=== PATIENT | male | born 1980 | race Caucasian/White ===

== ENCOUNTER 2018-05-10 04:40 | Outpatient (CLI) | payer BC ==
[2018-05-10 10:45] LABS: Hemoglobin 15.2 g/dL (14.0-18.0); Mean Corpuscular Hemoglobin 31.7 pg (27.0-31.0); Mean Corpuscular Volume 90.6 fL (78.0-98.0); Mean Platelet Volume 6.5 fL (7.4-10.4); Platelet Count 302 thou/uL (130-400); RBC Distribution Width 10.8 % (11.5-14.5); Red Blood Cell (RBC) Count 4.81 mill/uL (4.70-6.10); White Blood Cell (WBC) Count 6.4 thou/uL (4.8-10.8)
[2018-05-10 11:06] LABS: Anion Gap 14 mmol/L (10-20); BUN (Urea Nitrogen) 12 mg/dL (8.9-20.6); Calc. Creatinine Clearance 0 mL/min (70-130); Calcium 9.7 mg/dL (7.8-10.44); Carbon Dioxide 26 mmol/L (22-29); Chloride 105 mmol/L (98-107); Estimated GFR-MDRD Greater than 90; Glucose 98 mg/dL (70-105); Potassium 4.7 mmol/L (3.5-5.1); Sodium 140 mmol/L (136-145)
== END 2018-05-10 04:41 | disposition home or self-care (01) ==
LOC: LABBT 04:40
PROVIDERS: ATTEND Neurological Surgery
DX: Z01.818 Encounter for other preprocedural examination (principal); M54.16 Radiculopathy, lumbar region
CPT/HCPCS: 80048; 85027; 93005; 93010

== ENCOUNTER 2018-05-12 08:07 | Observation (INO) | payer BC ==
[2018-05-12] MEDS ORDERED: Ketorolac Tromethamine 30 MG/ML VIAL ONE (10:42)
[2018-05-12] MEDS ORDERED: Lidocaine 1% PF 5 ML VIAL ONE (10:42)
[2018-05-12] MEDS ORDERED: Glycopyrrolate 0.2 MG/ML 5 ML SYRINGE ONE (10:42)
[2018-05-12] MEDS ORDERED: PROPOFOL 200 MG/20 ML VIAL ONE (10:42)
[2018-05-12] MEDS ORDERED: Metoclopramide HCl 10 MG/2 ML VIAL ONE (10:42)
[2018-05-12] MEDS ORDERED: Rocuronium Bromide 10 MG/ML (10ML VIAL) ONE (10:42)
[2018-05-12] MEDS ORDERED: Dexamethasone 20 MG/5 ML VIAL ONE (10:42)
[2018-05-12] MEDS ORDERED: Ondansetron PF 4 MG/2 ML Vial ONE (10:42)
[2018-05-12] MEDS ORDERED: Thrombin 5000 UNITS/5 ML VIAL ONE (11:29)
[2018-05-12] MEDS ORDERED: Fentanyl 100 MCG/2 ML VIAL ONE ×3 (11:40→13:18)
[2018-05-12] MEDS ORDERED: Midazolam HCl 2 mg/2 ml Vial ONE (11:43)
--- NOTE | 2018-05-12 12:39 | OP ---
DATE OF PROCEDURE: 05/12/2018 WIREWORKER: Tam Estrada PA-C PROCEDURE PERFORMED: Left L5-S1 microdiskectomy. DESCRIPTION OF PROCEDURE: The patient was brought to the operating room and intubated. He was rolled in a prone position on gel-filled chest rolls. An incision was made exposing L5 and S1 and the level was confirmed by x-ray. We performed left L5-S1 hemilaminectomy and removed the ligament, identified the left S1 nerve root and beneath that was a disk herniation. This was incised and debrided multiple fragments and a complete decompression of left S1 was achieved. The wound was then extensively irrigated and maximum hemostasis was secured. Vancomycin powder was applied and the wound was closed in anatomic layers. Job ID: [id number]
[2018-05-12] MEDS ORDERED: Morphine 4 MG/ML VIAL ONE (13:38)
[2018-05-12] MEDS ORDERED: Morphine 2 MG/ML SYRINGE ONE (13:50)
[2018-05-12] MEDS ORDERED: Tamsulosin HCl 0.4 MG CAP ONE (17:26)
[2018-05-12] MEDS ORDERED: Diazepam 5 MG TAB PO SCH (19:00)
[2018-05-12 20:57] VITALS: BMI 22.1
[2018-05-12] MEDS ORDERED: Ibuprofen 200 MG TAB PO PRN (21:15)
[2018-05-12] MEDS ORDERED: tiZANidine HCl 4 MG TAB PO PRN (21:17)
[2018-05-12] MEDS ORDERED: Ondansetron PF 4 MG/2 ML Vial SLOW IVP PRN (21:17)
[2018-05-12] MEDS ORDERED: Promethazine HCl 25 MG/ML VIAL IM PRN (21:17)
[2018-05-12] MEDS ORDERED: Promethazine 25 MG TAB PO PRN (21:17)
[2018-05-12] MEDS ORDERED: HYDROcodone/Acetaminophen 10/325 mg Tablet PO PRN ×2 (21:17)
[2018-05-12] MEDS ORDERED: Morphine 4 MG/ML VIAL SLOW IVP PRN (21:17)
[2018-05-12] MEDS ORDERED: Mag-Al 1200 mg/1200 mg/30 ML UDCUP PO PRN (21:17)
[2018-05-12] MEDS ORDERED: Promethazine HCl 12.5 MG SUPP PR PRN (21:17)
[2018-05-12] MEDS ORDERED: Milk Of Magnesia 30 ML UDCUP PO PRN (21:17)
[2018-05-12] MEDS ORDERED: traMADol HCl 50 MG TAB PO PRN ×2 (21:17)
[2018-05-12] MEDS ORDERED: diphenhydrAMINE 50 MG/ML VIAL IVP PRN (21:17)
[2018-05-12] MEDS ORDERED: diphenhydrAMINE 25 MG CAP PO PRN (21:17)
[2018-05-12] MEDS: Sodium Chloride 0.9% 1,000 ML IV SCH (21:37)
[2018-05-13] MEDS: Sodium Chloride 0.9% 1,000 ML IV SCH (07:21)
[2018-05-13 08:47] VITALS: BP 97/59; TEMP 97.4
--- NOTE | 2018-05-13 09:00 | DIS ---
DATE OF ADMISSION: 05/12/2018 DATE OF DISCHARGE: 05/13/2018 Discharge summary The patient is a 37-year-old male, seen by us recently in the office for left L5 -S1 radiculopathy. He was found to have herniated disk at left L5-S1 and underwent left L5-S1 microdiskectomy. Following the surgery, he had significant improvement in his left leg pain, but did develop urinary retention. He was treated with p.o. Flomax. However, he required straight cath x1. He was admitted overnight for observation and this improved significantly. He is now urinating without any difficulty. He denies any pain, has not required any narcotics during his stay. We will plan to dismiss the patient to home. I discussed home care and follow up with our office in 2 weeks. Job ID: [id number] MTDNatalie
== END 2018-05-13 09:05 | disposition home or self-care (01) ==
LOC: SDC 08:07 → SURG B 19:48
PROVIDERS: ADMIT Neurological Surgery; ATTEND Neurological Surgery
PROC: 0ST20ZZ Resection of Lumbar Vertebral Disc, Open Approach (ICD-10-PCS; principal; 2018-05-13)
PROC: 00NY0ZZ Release Lumbar Spinal Cord, Open Approach (ICD-10-PCS; 2018-05-13)
DX: M51.16 Intervertebral disc disorders with radiculopathy, lumbar region (principal)
CPT/HCPCS: 51798; 76000; G0378; J1100; J1885; J2001; J2250; J2270; J2405; J2704; J2765; J3010; J3370